=== PATIENT | female | born 1955 | race African-American/Black ===

== ENCOUNTER → 2018-04-05 | Day surgery (SDC) | payer BC, OTHER ==
[2018-04-04 10:22] VITALS: BMI 26.2
[~2018-04-05] MED LIST: ACETAMINOPHEN 500 MG TABLET (FP) PO PRN; BACITRACIN 50,000 UNITS VIAL TP ONE; BUPIVACAINE HCL/PF (5 MG/ML) 30 ML VIAL IJ ONE; DEXAMETHASONE SOD PHOSPHATE 4 MG/1 ML VIAL IM ONE; LACTATED RINGERS SOLUTION 1,000 ML IV SCH; LIDOCAINE HCL 1%, 10 MG/ML (20ML VIAL) PNB ONE; ONDANSETRON 4 MG/2 ML VIAL IVPUSH PRN; oxyCODONE HCL 5 MG TABLET PO PRN
--- NOTE | 2018-04-05 10:17 | OP ---
Operative Note - Note: Operative Date: 04/05/18 Pre-Operative Diagnosis: Bunion left foot. Painful hardware 2 screws. Exostosis mid tarsal joint. Hammer toe 2nd toe. Operation: Modified Hopkins bunioonectomy joint mobilization. Surgical hardware removal x 2 screws 1st metatrsal shaft. Arthroplasy PIPJ 2nd toe left. Exostectomy dorsum left foot. Findings: hypertrophic bone and soft tissue. Post-Operative Diagnosis: Same as Pre-op Surgeon: Sara Malik Mastic Man: Carlos Lopez Anesthesia: Local Specimens Removed: bone and soft tissue Estimated Blood Loss (mls): 10 Drains & Tubes with Location: na Operative Report Dictated: Yes
[2018-04-05 12:00] VITALS: TEMP 97.9
[2018-04-05 13:27] VITALS: BP 115/65; PULSE 74
--- NOTE | 2018-04-08 11:22 | OP ---
DATE OF OPERATION: 04/05/2018 SURGEON: Sara Malik DPM SERVICE CLERK: Clarence Gilbert MD and Dr. Sanches, PGY-3 PREOPERATIVE DIAGNOSES: 1. Left foot bunion. 2. Left foot second hammertoe. 3. Left foot dorsal midfoot exostosis. POSTOPERATIVE DIAGNOSES: 1. Left foot bunion. 2. Left foot second hammertoe. 3. Left foot dorsal midfoot exostosis. PROCEDURE: 1. Left foot Arora bunionectomy. 2. Left foot hallux hardware removal. 3. Left foot second toe arthroplasty. 4. Left dorsal midfoot exostectomy. ANESTHESIA: Local with MAC. PATHOLOGY: Left foot bone and soft tissue. ESTIMATED BLOOD LOSS: 5 mL. HEMOSTASIS: Left ankle tourniquet and electrocautery. MATERIALS USED: 2-0, 3-0, 4-0 Vicryl sutures, 4-0 nylon suture, Mastisol and Steri-Strips, Betadine-soaked Adaptic, and dry sterile dressing, and Jim bandage. INJECTABLES: Twenty mL of a 1:1 mixture of 1% lidocaine plain and 0.5% Marcaine plain injected preoperatively and 10 mL of an 8:2 mixture of 0.5% Marcaine plain and 4 mg of dexamethasone injected postoperatively. CONDITION OF THE PATIENT: Stable. DESCRIPTION: The patient was brought to the operating room and placed on the operating table in supine position. A pneumatic ankle tourniquet was then placed on the patient's left ankle. Following IV sedation, local anesthesia was obtained using a 1:1 mixture of 1% lidocaine plain and 0.5% Marcaine plain preoperatively. A total of 20 mL was injected into the left foot surgical site. The left foot was then scrubbed, prepped, and draped in the usual aseptic manner. An Esmarch bandage was then utilized to exsanguinate the patient's left foot, and the tourniquet was then inflated. Attention was first directed to the dorsal aspect of the first metatarsal of the left foot where a linear incision was made medial and parallel to the tendon of extensor hallucis longus. Incision was then deepened through the subcutaneous tissue using sharp and blunt dissection. Care was taken to identify all vital neural and vascular structures. All bleeders were ligated and cauterized as necessary. At this time, a linear capsulotomy was then performed over the dorsal aspect of the first metatarsal phalangeal joint. The periosteal and capsular structures were then carefully dissected medially and laterally exposing the head of the first metatarsal. Using a [place], the head of the metatarsal was cleared from its periosteal ligament attachment thus exposing the 2 screws that were previously placed. At this time, using an [employer] equipment mechanic specialist, the 2 screws from previous surgery were removed and passed from the operative field and sent to Pathology. At this time, attention was directed to the medial aspect of the first metatarsal head. Using a sagittal saw, the medial prominence was then resected and passed from the operative field and sent to Pathology. Dorsal osteophytes were noted at the proximal aspect of base of proximal phalanx dorsally. Using sagittal saw, the dorsal osteophyte at the base of the proximal phalanx as well as the dorsal aspect of the head of the first metatarsal was resected, and all of the sharp edges were smoothed using a power king. At this time, the position of the left hallux was reassessed and appeared to be within acceptable alignment. The wound was then irrigated with copious amounts of normal saline with bacitracin in it. The capsular and subcutaneous tissue were sutured using 2-0, 3-0, 4-0, and 5-0 Vicryl sutures. Mastisol and Steri-Strips were applied to the skin across the incision site. Attention was directed to the dorsal aspect of the proximal interphalangeal joint of the second toe where a semielliptical incision was made on the dorsal aspect of the proximal interphalangeal joint and wedge was removed from the operative field and sent to Pathology. At this time the extensor tendon was tenotomized, and the head of the proximal phalanx was freed from its collateral ligament using sagittal saw the head of the proximal phalanx was resected and passed from the operative field and position of hammertoe appeared to be reduced with acceptable alignment. The wound was then irrigated with copious amounts of normal saline with bacitracin in it. The extensor tendon was sutured using 3-0 Vicryl suture, and the skin was closed using 4-0 nylon suture. Next attention was brought to the dorsal exostosis at the dorsomedial aspect of the midfoot where a linear incision was made on dorsomedial aspect of the midfoot about a 2-cm incision. The subcutaneous tissue was from the bony exostosis using a [place]. Using a bone rasp, the dorsal exostosis was resected and passed from the operative field and sent to Pathology. The dorsal aspect of the midfoot was then evaluated, and no bony prominence was noted. At this time, the wound was irrigated with copious amounts of normal saline, and subcutaneous tissues were closed using 3-0 and 4-0 vinyl and 5-0 Vicryl sutures. Mastisol and Steri-Strips applied to the incision area. At this time, 10 mL of 8:2 mixture of 25% Marcaine pain and 4 mg dexamethasone was injected into the postsurgical site, and a postoperative dressing applied to the left foot such as Betadine-soaked Adaptic and 4 x 4 sterile gauze, Eda, and Jim bandage. The left ankle tourniquet was then deflated, and immediate hyperemia was returned to all the digits of the left foot. Patient tolerated the procedure and anesthesia well and was transferred to the recovery room with all vital signs stable and vascular status intact to the left foot. Following postoperative monitoring, the patient will be discharged home, was already given instructions and prescriptions which were discussed prior to surgery. Dr. Sanches, PGY-3 dictating for MONSE Wright DPM [id number]
--- NOTE | 2018-04-08 15:37 | PATH ---
Surgical Pathology Report Patient Name: ISMAEL NAYLOR Med. Rec. #: [id number] /Age/Gender: 1955 (Age: 63) / F Account: [id number] Location: [facility] SURGICAL Taken: 04/05/2018 Received: 04/05/2018 Reported: 04/08/2018 Physicians: Sara Malik DPM Specimen(s) Received A: BONE FROM 2ND TOE LEFT B: 2 SCREWS FROM LEFT FOOT BUNION Clinical History Left bunionectomy/hallux left Final Diagnosis A. BONE, SECOND TOE, LEFT, BUNIONECTOMY: BONE WITH DEGENERATIVE CHANGES. BENIGN DENSE FIBROCONNECTIVE TISSUE. B. FOOT, LEFT, BUNION, SCREWS, REMOVAL: SURGICAL HARDWARE. MACROSCOPIC DIAGNOSIS. Electronically Signed Chelsea Link M.D. Gross Description A. Received in formalin, labeled "bone from second toe left" are 2 pieces of bone and attached soft tissue measuring 1.5 cm. in greatest dimension. The specimens are submitted in toto in one cassette the decalcification. B. Received in formalin, labeled "2 screws from left foot bunion" are 2 screws measuring 1.5 cm in length and up to 0.2 cm in diameter. Gross examination only. BRAD/04/05/2018 [email or web address]
== END | disposition home or self-care (01) ==
LOC: JASU-SURG 06:10
PROVIDERS: ATTEND Podiatrist Foot Surgery
PROC: 0QPR04Z Removal of Internal Fixation Device from Left Toe Phalanx, Open Approach (ICD-10-PCS; 2018-04-05)
PROC: 0QBR0ZZ Excision of Left Toe Phalanx, Open Approach (ICD-10-PCS; principal; 2018-04-05 08:00)
PROC: 0SRQ0JZ Replacement of Left Toe Phalangeal Joint with Synthetic Substitute, Open Approach (ICD-10-PCS; 2018-04-05 08:00)
DX: M89.8X7 Other specified disorders of bone, ankle and foot (principal); M20.12 Hallux valgus (acquired), left foot; M20.41 Other hammer toe(s) (acquired), right foot
CPT/HCPCS: 73630-TC-LT; 88300-TC; 88305-TC; 88311-TC; 94760; 97116-GP